=== PATIENT | female | born 1995 | race Caucasian/White ===

== ENCOUNTER 2016-10-12 09:20 | Emergency (ER) | payer OTHER ==
[2016-10-12 09:20] VITALS: BMI 42.0
[2016-10-12 09:25] VITALS: RESP 18; TEMP 98; O2SAT 99
[2016-10-12 10:07] VITALS: BP 120/72; PULSE 71
--- NOTE | 2016-10-12 10:40 | C.PDOC ---
History Of Present Illness 21 yr old female presents to the ER with complaints of diffuse body rash, which started few days ago. Patient reports has tried Benadryl with mild relief but the rash returns. Patient denies any known new exposure, fever, chest pain, SOB , mouth swelling, throat swelling, nausea, vomiting or headache. Time Seen by Provider: 10/12/16 09:44 Chief Complaint (Nursing): Abnormal Skin Integrity History Per: Patient History/Exam Limitations: no limitations Onset/Duration Of Symptoms: Days (Few days) Past Medical History Reviewed: Historical Data, Nursing Documentation, Vital Signs Vital Signs: Last Vital Signs Temp 98 F 10/12/16 09:23 Pulse 71 10/12/16 10:06 Resp 18 10/12/16 10:06 BP 120/72 10/12/16 10:06 Pulse Ox 99 10/12/16 10:42 - [facility] Procedures MANUAL ASSIST DELIV NEC (10/25/14) REPAIR OB LACERATION NEC (10/25/14) Family History: States: No Known Family Hx - Social History Hx Alcohol Use: No Hx Substance Use: No - Immunization History Hx Tetanus Toxoid Vaccination: Yes Hx Influenza Vaccination: Yes Hx Pneumococcal Vaccination: Yes Review Of Systems Except As Marked, All Systems Reviewed And Found Negative. Constitutional: Negative for: Fever ENT: Negative for: Mouth Swelling, Throat Swelling Cardiovascular: Negative for: Chest Pain Respiratory: Negative for: Shortness of Breath Gastrointestinal: Negative for: Nausea, Vomiting Skin: Positive for: Rash (Diffuse body rash ) Neurological: Negative for: Headache Physical Exam - Physical Exam Appears: Non-toxic, No Acute Distress Skin: Warm, Dry, Rash (Diffuse urtecaria. ) Head: Atraumatic, Normacephalic Oral Mucosa: Moist Throat: Normal, No Erythema, No Exudate, No Drooling Chest: Symmetrical, No Tenderness Cardiovascular: Rhythm Regular, No Murmur Respiratory: Normal Breath Sounds, No Rales, No Rhonchi, No Stridor, No Wheezing Extremity: Normal ROM, No Swelling Neurological/Psych: Oriented x3, Normal Speech, Normal Motor ED Course And Treatment O2 Sat by Pulse Oximetry: 99 (RA ) Pulse Ox Interpretation: Normal Medical Decision Making Medical Decision Making: PLAN: * Prednisone PO Disposition - Disposition Referrals: Lisa Knowles MD [Primary Care Provider] - Disposition: HOME/ ROUTINE Disposition Time: 09:50 Condition: GOOD Additional Instructions: Thank you for letting us take care of you today. Your provider was Dr. Menjivar. You were treated for an allergic reaction. The emergency medical care you received today was directed at your acute symptoms. If you were prescribed any medication, please fill it and take as directed. It may take several days for your symptoms to resolve. Return to the Emergency Department if your symptoms worsen, do not improve, or if you have any other problems. Please contact your doctor or call one of the physicians/clinics you have been referred to that are listed on the Patient Visit Information form that is included in your discharge packet. Bring any paperwork you were given at discharge with you along with any medications you are taking to your follow up visit. Our treatment cannot replace ongoing medical care by a primary care provider (PCP) outside of the emergency department. Thank you for allowing the [facility] team to be part of your care today. Try to do the items we discussed to pin-point what you are allergic to. Follow up with your doctor or the clinic in 3-4 days for re-evaluation and further management. Prescriptions: predniSONE [Prednisone] 40 mg PO DAILY #10 tab Instructions: General Allergic Reaction (ED) Forms: [employer] (Hungarian) - Clinical Impression Clinical Impression: Allergic reaction - Scribe Statement The provider has reviewed the documentation as recorded by the Vanessaibalessio Razo Provider Attestation: All medical record entries made by the Vanessaibalessio were at my direction and personally dictated by me. I have reviewed the chart and agree that the record accurately reflects my personal performance of the history, physical exam, medical decision making, and the department course for this patient. I have also personally directed, reviewed, and agree with the discharge instructions and disposition.
== END 2016-10-12 10:08 | disposition home or self-care (01) ==
LOC: SUPCPDRO 09:20 → C.ER 09:20
DX: T78.49XA Other allergy, initial encounter (principal)

== ENCOUNTER 2017-08-29 19:50 | Emergency (ER) | payer BC, OTHER ==
[2017-08-29 19:51] VITALS: BMI 42.0
[2017-08-29 19:58] VITALS: TEMP 99.7
[2017-08-29] MEDS ORDERED: Sodium Chloride 0.9% 1,000 ML IV ONE (20:18)
--- NOTE | 2017-08-29 20:18 | C.PDOC ---
History Of Present Illness 22 y/o female, , presents to ED for complaints of cramping abdominal pain and vaginal bleeding that began yesterday. Patient is 5 weeks . Denies fever, chills, nausea, vomiting, or any other physical complaints. Time Seen by Provider: 08/29/17 20:18 Chief Complaint (Nursing): Female Genitourinary History Per: Patient History/Exam Limitations: no limitations Onset/Duration Of Symptoms: Days (1) Current Symptoms Are (Timing): Still Present Severity: Moderate Pain Scale Rating Of: 4 Quality Of Discomfort: Cramping Associated Symptoms: denies: Fever, Chills, Nausea, Vomiting, Diarrhea Alleviating Factors: None Recent travel outside of the [place]: No Abnormal Vaginal Bleeding: Yes : 2 Para: 1 Past Medical History Reviewed: Historical Data, Nursing Documentation, Vital Signs Vital Signs: Last Vital Signs Temp 99.7 F H 08/29/17 19:54 Pulse 108 H 08/29/17 19:54 Resp 14 08/29/17 21:30 BP 120/70 08/29/17 21:30 Pulse Ox 98 08/29/17 21:30 - Medical History PMH: No Chronic Diseases - [facility] Procedures MANUAL ASSIST DELIV NEC (10/25/14) REPAIR OB LACERATION NEC (10/25/14) Family History: States: No Known Family Hx - Social History Hx Alcohol Use: No Hx Substance Use: No - Immunization History Hx Tetanus Toxoid Vaccination: Yes Hx Influenza Vaccination: Yes Hx Pneumococcal Vaccination: Yes Review Of Systems Constitutional: Negative for: Fever, Chills Gastrointestinal: Positive for: Abdominal Pain. Negative for: Nausea, Vomiting , Diarrhea Genitourinary: Positive for: Vaginal Bleeding. Negative for: Dysuria Skin: Negative for: Rash Neurological: Negative for: Weakness, Numbness Psych: Negative for: Anxiety Physical Exam - Physical Exam Appears: Non-toxic, No Acute Distress Skin: Warm, Dry Head: Normacephalic Eye(s): bilateral: Normal Inspection Oral Mucosa: Moist Neck: Supple Chest: Symmetrical Cardiovascular: Rhythm Regular Respiratory: No Rales, No Rhonchi, No Wheezing Gastrointestinal/Abdominal: Soft, Tenderness (Suprapubic ) Extremity: Normal ROM Extremity: Bilateral: Atraumatic, Normal Color And Temperature, Normal ROM Neurological/Psych: Oriented x3, Normal Speech Gait: Steady ED Course And Treatment - Laboratory Results Result Diagrams: 08/29/17 21:38 08/29/17 21:38 O2 Sat by Pulse Oximetry: 100 (RA) Pulse Ox Interpretation: Normal Progress Note: Administered IV fluids. Ordered blood work, urinalysis, and OB Transvaginal US. Reevaluation Time: 23:58 Reassessment Condition: Improved Disposition Counseled Patient/Family Regarding: Studies Performed, Diagnosis, Need For Followup - Disposition Referrals: Julia Barrett MD [Staff Provider] - Disposition: HOME/ ROUTINE Disposition Time: 20:18 Condition: FAIR Additional Instructions: Please return if symptoms recur. Do return in 7-10 days for a repeat BHCG level Instructions: Threatened Miscarriage (DC) Forms: [employer] [employer] (Barbadian) - Clinical Impression Clinical Impression: Threatened - Scribe Statement The provider has reviewed the documentation as recorded by the Scribe Carina Bullock All medical record entries made by the Scribe were at my direction and personally dictated by me. I have reviewed the chart and agree that the record accurately reflects my personal performance of the history, physical exam, medical decision making, and the department course for this patient. I have also personally directed, reviewed, and agree with the discharge instructions and disposition.
[2017-08-29 21:41] VITALS: RESP 14
[2017-08-29 21:44] LABS: BASO # 0.1 K/uL (0.0-0.2); EOS % 0.3 % (0.0-4.0); HEMOGLOBIN 11.6 g/dL (11.0-16.0); LYMPH # 3.1 K/uL (1.0-4.3); LYMPH % 51.7 % (20.0-40.0); MEAN CELL VOLUME 81.1 fL (81.0-99.0); MEAN CORPUSCULAR HEMOGLOBIN 26.4 pg (27.0-31.0); MEAN CORPUSCULAR HGB CONC 32.5 g/dL (33.0-37.0); MEAN PLATELET VOLUME 8.8 fL (7.2-11.7); MONO # 0.6 K/uL (0.0-0.8); MONO % 9.7 % (0.0-10.0); NEUT # 2.2 K/uL (1.8-7.0); NEUT % 37.3 % (50.0-75.0); RBC 4.39 Mil/uL (3.80-5.20); RED CELL DISTRIBUTION WIDTH 15.2 % (11.5-14.5)
[2017-08-29 21:48] LABS: SQUAMOUS EPITHIAL 4 /hpf (0-5); URINE BACTERIA RARE (<OCC); URINE BILIRUBIN NEGATIVE (NEGATIVE); URINE BLOOD NEGATIVE (NEGATIVE); URINE CLARITY Clear (Clear); URINE COLOR Yellow (YELLOW); URINE GLUCOSE (UA) NORMAL (Normal); URINE LEUKOCYTE ESTERASE 1+ Leu/uL (Negative); URINE PROTEIN NEGATIVE (NEGATIVE); URINE UROBILINOGEN NORMAL mg/dL (0.2-1.0)
[2017-08-29 21:52] LABS: INR 1.2; PROTHROMBIN TIME 13.5 SECONDS (9.7-12.2)
[2017-08-29 21:56] LABS: ALT/SGPT 27 U/L (9-52); AST/SGOT 16 U/L (14-36); BLOOD UREA NITROGEN 8 mg/dL (7-17); GFR AFRICAN-AMERICAN > 60; GFR NON-AFRICAN AMERICAN > 60
[2017-08-30 00:24] VITALS: BP 120/75; PULSE 80; O2SAT 99
--- NOTE | 2017-08-30 09:07 | US ---
PROCEDURE: OB Pelvic Ultrasound HISTORY: , vag bleed COMPARISON: None available. FINDINGS: UTERUS: Single intrauterine gestation. Gestational sac diameter measures 0.92 cm too small to estimate gestational age. Yolk sac is present. No pole is visualized on the current examination. Date of delivery (Ultrasound estimated) : [place] Carmen-gestational hemorrhage: None. Uterus measures 8.1 x 4.9 x 6.0 cm. No mass CERVIX: Long and closed. No cervical abnormality seen. RIGHT OVARY: Measures 2.5 x 2.2 x 2.7 cm. No mass. Normal flow. LEFT OVARY: Measures 3.2 x 2.1 x 2.1 cm. No mass. Normal flow. FREE FLUID: None. OTHER FINDINGS: None. IMPRESSION: Single intrauterine gestational sac too small to estimate gestational age. Yolk sac is visualized. pole is not identified on the current examination. Clinical and imaging follow-up is advised.
== END 2017-08-30 00:24 | disposition home or self-care (01) ==
LOC: C.ER 19:50
DX: O20.0 Threatened abortion (principal); Z3A.00 Weeks of gestation of pregnancy not specified

== ENCOUNTER 2017-11-26 18:09 | Emergency (ER) | payer BC ==
[2017-11-26 18:09] VITALS: BMI 42.0
[2017-11-26 18:16] VITALS: PULSE 71; RESP 20; TEMP 98.1; O2SAT 98
[2017-11-26 18:22] VITALS: BP 134/87
--- NOTE | 2017-11-26 18:37 | C.PDOC ---
History Of Present Illness 22 year old female, who is currently around 18 weeks , presents to the ED for evaluation of cough and congestion for 3 days. Patient states she was unsure about what medicine to take, since she is . Patient took Tylenol because she felt like she had a fever. She denies abdominal pain, vaginal bleeding/discharge. Time Seen by Provider: 11/26/17 18:28 Chief Complaint (Nursing): Cough, Cold, Congestion History Per: Patient History/Exam Limitations: no limitations Onset/Duration Of Symptoms: Days (3) Current Symptoms Are (Timing): Still Present Associated Symptoms: Cough Additional History Per: Patient Past Medical History Reviewed: Historical Data, Nursing Documentation, Vital Signs Vital Signs: Last Vital Signs Temp 98.1 F 11/26/17 18:13 Pulse 71 11/26/17 18:13 Resp 20 11/26/17 18:13 BP 134/87 11/26/17 18:21 Pulse Ox 98 11/26/17 18:13 - Medical History PMH: Hyperthyroidism Surgical History: No Surg Hx - [facility] Procedures MANUAL ASSIST DELIV NEC (10/25/14) REPAIR OB LACERATION NEC (10/25/14) Family History: States: Unknown Family Hx - Social History Hx Alcohol Use: No Hx Substance Use: No - Immunization History Hx Tetanus Toxoid Vaccination: Yes Hx Influenza Vaccination: Yes Hx Pneumococcal Vaccination: Yes Review Of Systems ENT: Positive for: Nose Congestion Respiratory: Positive for: Cough Gastrointestinal: Negative for: Abdominal Pain Genitourinary: Negative for: Vaginal Discharge, Vaginal Bleeding Physical Exam - Physical Exam Appears: Non-toxic, No Acute Distress Skin: Normal Color, Warm, Dry Head: Atraumatic, Normacephalic Eye(s): bilateral: Normal Inspection Ear(s): Bilateral: Normal Nose: Normal, No Discharge Oral Mucosa: Moist Throat: Normal, No Erythema, No Exudate Neck: Supple Chest: Symmetrical, No Deformity, No Tenderness Cardiovascular: Rhythm Regular, No Murmur Respiratory: Normal Breath Sounds, No Rales, No Rhonchi, No Wheezing, Other (active coughing noted ) Extremity: Normal ROM, Capillary Refill (less than 2 seconds ) Neurological/Psych: Oriented x3, Normal Speech, Normal Cognition ED Course And Treatment O2 Sat by Pulse Oximetry: 98 (on RA) Pulse Ox Interpretation: Normal Medical Decision Making Medical Decision Making: female with cough and congestion likely viral. Vital signs stable, no fever and no signs of respiratory distress. Lungs clear bilaterally. No abdomen pain. Recommend rest, fluids, Tylenol and saline. Patient is advised to follow up with her PMD within 1-2 days for further evaluation. Advised to return to the ED if symptoms persist or worsen. Disposition Counseled Patient/Family Regarding: Diagnosis, Need For Followup, Rx Given - Disposition Disposition: HOME/ ROUTINE Disposition Time: 18:36 Condition: GOOD Additional Instructions: Rx sent to [facility] Take Tylenol for any fever or bodyaches Use saline nebulizer for congestion and cough Can take Claritin in Rest and drink fluids Prescriptions: Sodium Chloride 0.9% [Sodium Chloride 0.9% Inh Soln] 3 ml IH Q2 #100 neb Sodium Chloride For Inhalation [Pulmosal (pH+) 4 ml] 4 ml IH Q2 #100 susanne Instructions: Upper Respiratory Infection (ED) Forms: [employer] (Telugu) - POA Present On Arrival: None - Clinical Impression Clinical Impression: Upper respiratory infection - PA / VIDEO TAPE TRANSFERRER / Resident Statement MD/DO has reviewed & agrees with the documentation as recorded. - Scribe Statement The provider has reviewed the documentation as recorded by the Scribe (Gely Dumont) All medical record entries made by the Scribe were at my direction and personally dictated by me. I have reviewed the chart and agree that the record accurately reflects my personal performance of the history, physical exam, medical decision making, and the department course for this patient. I have also personally directed, reviewed, and agree with the discharge instructions and disposition.
== END 2017-11-26 18:45 | disposition home or self-care (01) ==
LOC: C.ER 18:09
DX: O26.892 Other specified pregnancy related conditions, second trimester (principal); J06.9 Acute upper respiratory infection, unspecified; Z3A.18 18 weeks gestation of pregnancy

== ENCOUNTER 2018-02-27 11:25 | Observation (INO) | payer BC, OTHER ==
[2018-02-27] MEDS ORDERED: Lactated Ringer's 1,000 ML IV ONE ×2 (12:31→13:45)
[2018-02-27 13:01] LABS: BASO % 0.1 % (0.0-2.0); EOS % 0.1 % (0.0-4.0); HEMOGLOBIN 11.2 g/dL (11.0-16.0); LYMPH # 0.7 K/uL (1.0-4.3); LYMPH % 12.4 % (20.0-40.0); MEAN CELL VOLUME 85.1 fL (81.0-99.0); MEAN CORPUSCULAR HGB CONC 32.9 g/dL (33.0-37.0); MEAN PLATELET VOLUME 10.2 fL (7.2-11.7); MONO # 0.3 K/uL (0.0-0.8); NEUT # 4.7 K/uL (1.8-7.0); NEUT % 82.4 % (50.0-75.0); RBC 3.99 Mil/uL (3.80-5.20); RED CELL DISTRIBUTION WIDTH 14.1 % (11.5-14.5); WHITE BLOOD COUNT 5.7 K/uL (4.8-10.8)
[2018-02-27 13:07] LABS: SQUAMOUS EPITHIAL 4 /hpf (0-5); URINE BACTERIA RARE (<OCC); URINE BILIRUBIN NEGATIVE (NEGATIVE); URINE BLOOD NEGATIVE (NEGATIVE); URINE COLOR Amber (YELLOW); URINE GLUCOSE (UA) NORMAL (Normal); URINE LEUKOCYTE ESTERASE 3+ Leu/uL (Negative); URINE PROTEIN 1+ mg/dL (NEGATIVE)
[2018-02-27 13:08] LABS: URINE CLARITY SLHAZY (Clear)
[2018-02-27 13:17] LABS: ALBUMIN 3.8 g/dL (3.5-5.0); ALT/SGPT 14 U/L (9-52); AST/SGOT 25 U/L (14-36); BLOOD UREA NITROGEN 8 mg/dL (7-17); CALCIUM 8.8 mg/dl (8.6-10.4); GFR NON-AFRICAN AMERICAN > 60
[2018-02-27] MEDS ORDERED: cefTRIAXone IV 1 gm in Dextros 1 GM in Dextrose 5% In Water 50 ML IVPB ONE (14:00)
--- NOTE | 2018-02-27 16:15 | US ---
Date of service: 02/27/2018 PROCEDURE: Ultrasound of the Kidneys HISTORY: UTI r/o pyelo vs hydronephrosis; patient 31 weeks COMPARISON: None available. TECHNIQUE: Sonogram of the kidneys. FINDINGS: RIGHT KIDNEY: Measures: 10.3 x 4.8 x 4.9 cm. Mild fullness of the renal collecting system. No obstructing calculus. LEFT KIDNEY: Measures: 11.7 x 5.2 x 5.6 cm. No obstructing calculus or hydronephrosis. OTHER FINDINGS: Nondistended urinary bladder. IMPRESSION: Mild fullness of the right renal collecting system. Please note that pyelonephritis cannot be excluded on the basis of sonography alone. Correlate clinically.
[2018-02-27] MEDS: Lactated Ringer's 1,000 ML IV SCH (17:40)
--- NOTE | 2018-02-27 19:53 | OBHP ---
Datetime: 02/27/2018 15:52 IP Adm Impression: , intrauterine ; No Active Labor; Intact Membranes IP Admit Plan: Observation/Evaluation Admit Comment, IP Provider: SUBJECTIVE: CC: back and abdominal pain HPI: Patient is a 22 yo female, at 31.3 wks, presents with 1 week of sharp, constant, 9/1 0 back pain that is non radiating. She complains of associated intermittent abdominal pain at the mid line which comes and goes several times per hour, which is similar to her prior labor pains. It has b een difficult for her to walk due to the pain. She also admits to b/l LE weakness, nausea/vomiting x 1, intermittent stress incontinence with , but denies peripheral numbness/tingling or sensor y changes.She has been drinking 10 cups of water daily because of her vomiting and urination. She was last seen at the [facility] 2 weeks ago and was scheduled to be seen there again tomorrow ( 02/28/18). Patient reports consistent movment, denies vaginal bleeding, denies fluid leakage from vagina, and is concerned that she may be having contractions. Ob Hx: Prior without complications at [facility], at 41 weeks and 8lbs and 1 ounce. 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 The father is aware of the , but not informed of this visit Sexual hx: has had 2 sexual partners in the last year: one is the father of her 3yo daughter, and one is hte father of her current OBJECTIVE: normal physical exam findings as above Urinalysis: Urine protein: 1+ Leihocyte esterace: 3+ Urine WBC: 20 Specific gravity: 1.028 A/P Suspect abdominal pain/nausea/vomiting is 2/2 UTI vs pyelonephritis Rocephin given for UTI R/o renal calculi/hydronephrosis: renal US pending Will give LR bolus and maintenance at 125 cc/hr for fluid resuscitation PRN Zofran, Reglan for nausea/vomiting Monitor for improvement NST reactive No palpable contractions Case and plan reviewed and discussed with Dr. Dash Pickett, DO, PGY-1 Pelvic Type - PN: Adequate Extremities - PN: Normal Abdomen - PN: Normal Back - PN: Normal Breast - PN: Not Done Lungs - PN: Normal Heart - PN: Normal Thyroid - PN: Normal Neurologic - PN: Normal HEENT - PN: Normal General - PN: Normal Presentation-Admit: Vertex FHR - Baseline A Provider: 150 Membranes, Provider: Intact Gestation - Est Wks by US: 31.5 IP Hx Assessment: The Care Records were reviewed EGA AdmitDate IP: 31.5 Vital Signs Provider: Reviewed; Within Normal Limits IP Chief Complaint: Signs/symptoms UTI; Maternal discomfort; Other NICHD Variability Prov Fetus A: Moderate 6-25bpm NICHD Accel Fetus A IP Provider: 10X10 FHR Category Provider Fetus A: Category I NICHD Decel Fetus A IP Provider: None Genitourinary Exam: Normal DTRs - PN: Normal
[2018-02-27] MEDS ORDERED: Betamethasone Soluspan 30 mg/5mL Inj Susp IM ONE (21:27)
--- NOTE | 2018-02-27 23:04 | OBADHP ---
Datetime: 02/27/2018 15:52 Admit Comment, IP Provider: SUBJECTIVE: CC: back and abdominal pain HPI: Patient is a 22 yo female, at 31.3 wks, presents with 1 week of sharp, constant, 9/1 0 back pain that is non radiating. She complains of associated intermittent abdominal pain at the mid line which comes and goes several times per hour, which is similar to her prior labor pains. It has b een difficult for her to walk due to the pain. She also admits to b/l LE weakness, nausea/vomiting x 1, intermittent stress incontinence with , but denies peripheral numbness/tingling or sensor y changes.She has been drinking 10 cups of water daily because of her vomiting and urination. She was last seen at the [facility] 2 weeks ago and was scheduled to be seen there again tomorrow ( 02/28/18). Patient reports consistent movment, denies vaginal bleeding, denies fluid leakage from vagina, and is concerned that she may be having contractions. Ob Hx: Prior without complications at [facility], at 41 weeks and 8lbs and 1 ounce. 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 The father is aware of the , but not informed of this visit Sexual hx: has had 2 sexual partners in the last year: one is the father of her 3yo daughter, and one is hte father of her current OBJECTIVE: normal physical exam findings as above Urinalysis: Urine protein: 1+ Leihocyte esterace: 3+ Urine WBC: 20 Specific gravity: 1.028 A/P Suspect abdominal pain/nausea/vomiting is 2/2 UTI vs pyelonephritis Rocephin given for UTI R/o renal calculi/hydronephrosis: renal US pending Will give LR bolus and maintenance at 125 cc/hr for fluid resuscitation PRN Zofran, Reglan for nausea/vomiting Monitor for improvement NST reactive No palpable contractions Case and plan reviewed and discussed with Dr. Dash Pickett, DO, PGY-1 Pelvic Type - PN: Adequate Extremities - PN: Normal Abdomen - PN: Normal Back - PN: Normal Breast - PN: Not Done Lungs - PN: Normal Heart - PN: Normal Thyroid - PN: Normal Neurologic - PN: Normal HEENT - PN: Normal General - PN: Normal Presentation-Admit: Vertex FHR - Baseline A Provider: 150 Membranes, Provider: Intact Gestation - Est Wks by US: 31.5 IP Hx Assessment: The Care Records were reviewed Vital Signs Provider: Reviewed; Within Normal Limits IP Chief Complaint: Signs/symptoms UTI; Maternal discomfort; Other NICHD Variability Prov Fetus A: Moderate 6-25bpm NICHD Accel Fetus A IP Provider: 10X10 FHR Category Provider Fetus A: Category I NICHD Decel Fetus A IP Provider: None Genitourinary Exam: Normal DTRs - PN: Normal EGA AdmitDate IP: 31.5 IP Adm Impression: , intrauterine ; No Active Labor; Intact Membranes IP Admit Plan: Observation/Evaluation
[2018-02-28] MEDS ORDERED: cefTRIAXone IV 1 gm in Dextros 50 ML IVPB ONE (02:06)
[2018-02-28 07:26] LABS: BASO % 0.2 % (0.0-2.0); HEMOGLOBIN 10.1 g/dL (11.0-16.0); LYMPH # 0.9 K/uL (1.0-4.3); LYMPH % 28.5 % (20.0-40.0); MEAN CELL VOLUME 84.9 fL (81.0-99.0); MEAN CORPUSCULAR HEMOGLOBIN 27.8 pg (27.0-31.0); MEAN CORPUSCULAR HGB CONC 32.8 g/dL (33.0-37.0); MONO # 0.1 K/uL (0.0-0.8); NEUT # 2.1 K/uL (1.8-7.0); NEUT % 67.3 % (50.0-75.0); NRBC % 0.1 % (0.0-2.0); RBC 3.65 Mil/uL (3.80-5.20); RED CELL DISTRIBUTION WIDTH 13.9 % (11.5-14.5); WHITE BLOOD COUNT 3.1 K/uL (4.8-10.8)
[2018-02-28 07:48] LABS: ALB/GLOB RATIO 0.9 (1.0-2.1); ALBUMIN 3.4 g/dL (3.5-5.0); ALT/SGPT 14 U/L (9-52); AST/SGOT 20 U/L (14-36); BLOOD UREA NITROGEN 5 mg/dL (7-17); CALCIUM 8.8 mg/dl (8.6-10.4); GFR NON-AFRICAN AMERICAN > 60
[2018-02-28] MEDS ORDERED: Lactated Ringer's 1,000 ML IV ONE (08:00)
--- NOTE | 2018-02-28 08:09 | OBPN ---
Datetime: 02/28/2018 07:37 IP Progress Impression Other: pyelonephritis Contraction Comments Provider: none FHR - Baseline A Provider: 130 Gestation - Est Wks by US: 31.4 IP Progress Note Comment: 22yo at 31.6wks - admitted with suspected pyelonephritis afebrile; hypotensive Pyelonephritis - No leukocytosis - on Rocephin 1g q12h - urine culture pending Nausea/Vomiting- improved with Reglan/Zofran - clear liquids--> advance as tolerated - Hypotension likely related to dehydration - Currently on LR- IVF bolus x 1 now recheck vitals in 1 hour continue FHR/TOCO Macrobid course followed by supression therapy when discharged Continue to monitor closely Vital Signs Provider: Reviewed Vital Signs Provider Details: hypotensive NICHD Accel Fetus A IP Provider: 15X15 FHR Category Provider Fetus A: Category I NICHD Variability Prov Fetus A: Moderate 6-25bpm NICHD Decel Fetus A IP Provider: None Datetime: 02/27/2018 15:52 Membranes, Provider: Intact Presentation-Admit: Vertex
[2018-02-28] MEDS: Lactated Ringer's 1,000 ML IV SCH ×2 (08:45→16:45)
--- NOTE | 2018-02-28 17:14 | OBPN ---
Datetime: 02/28/2018 16:16 IP Progress Impression Other: pyelonephritis IP Progress Plan: Continue present management FHR - Baseline A Provider: 130 Gestation - Est Wks by US: 31.6 IP Progress Note Comment: at 31.6wks- Suspected pyelonephritis VSS; afebrile Pyelonephritis - continue IVF @125cc/hr - continue Rocephin - CVA tenderness improved - urine culture negative celestone #2 10pm (+) nausea no further vomiting - pepcid/reglan PRN Continue to monitor Vital Signs Provider: Reviewed NICHD Accel Fetus A IP Provider: 15X15 FHR Category Provider Fetus A: Category I NICHD Variability Prov Fetus A: Moderate 6-25bpm NICHD Decel Fetus A IP Provider: None
[2018-02-28] MEDS ORDERED: Betamethasone Soluspan 30 mg/5mL Inj Susp IM ONE (22:00)
--- NOTE | 2018-03-01 06:35 | OBPN ---
Datetime: 03/01/2018 06:29 IP Progress Impression Other: Pyelonephritis FHR - Baseline A Provider: 140 Gestation - Est Wks by US: 32.0 IP Progress Note Comment: at 32 weeks- Admitted with suspected pyelonephritis 1) VSS; afebrile >24hr 2) Pyelonephritis - urine culture negative - renal US suggestive of pyelo- will send home with macrobid suppression - s/p rocephin 3) nausea/vomiting improved- Pt able to tolerate food and liquids 4) s/p celestone x 2 for FLM 5) f/u with [facility] in 1 week Vital Signs Provider: Reviewed NICHD Accel Fetus A IP Provider: 15X15 NICHD Variability Prov Fetus A: Moderate 6-25bpm NICHD Decel Fetus A IP Provider: None
--- NOTE | 2018-03-01 06:39 | OBDCSUM ---
Datetime: 03/01/2018 06:32 Discharged to, Provider: Home Follow up at, Provider: clinic Disch Instr Activity: Normal activity Disch Instr Diet: Regular Discharge Instructions, Provider: Specific instructions as noted Discharge Time: 03/01/2018 06:32 Follow up in weeks, Provider: 1 Discharge Comment, Provider: Pt admitted on 02/27/18 with low grade temp/nausea/vomiting/right flank p ain. Renal US performed suggestive of pyelonephritis - Pt given rocephin IV and IV hydration. CVA ten derness resolved and patient afebrile for 24 hours. Celestone for lung maturity given. No s/s P TL. Pt to be discharged home with follow up in clinic in 1 week. Pt given prescription for macrobid s upression. Discharge Diagnosis Prov Other: suspected pyelonephritis
--- NOTE | 2018-03-01 09:12 | US ---
Indication: Comparison: 1st trimester ultrasound performed 08/29/17 Technique: Real-time ultrasound was performed through the pelvis. Findings: There is a single living fetus in cephalic presentation. Amniotic fluid volume is within normal limits, 17.8 cm. Posterior placenta. The placenta is not previa. There are no adnexal masses or cysts evident. The study was performed for the emergent evaluation and the whole anatomic survey of the fetus was not performed. Limited visualized anatomy appears grossly unremarkable. This should be performed on an outpatient elective basis as clinically warranted. Measurements and calculations: Fetus has a composite sonographic age of 32 weeks 4 days. This calculation is based on the biparietal diameter, head circumference, abdominal circumference, and femur length. Estimated heart rate 135 beats per min. Estimated weight 2015 g. Cervix length measures approximately 3.2 cm. Biophysical profile: movements 2/2 breathing 2/2 tone 2/2 Amniotic fluid 2/2 Total score impression: 10/02 Impression: Single living fetus with a composite sonographic age of 32 weeks 4 days. Estimated heart rate 135 beats per min. Biophysical profile of 8 out of 8.
[2018-03-01 15:00] VITALS: BP 94/61; PULSE 86; RESP 20; TEMP 98; O2SAT 99
== END 2018-03-01 09:40 | disposition home or self-care (01) ==
LOC: C.EROB 11:25 → C.4D 16:59 → INTOOBSV 16:59 → UNDOADMIN 17:01 → C.4D 17:01
PROVIDERS: ADMIT Obstetrics & Gynecology; ATTEND Obstetrics & Gynecology
DX: O23.03 Infections of kidney in pregnancy, third trimester (principal); E86.0 Dehydration; N12 Tubulo-interstitial nephritis, not specified as acute or chronic; N39.3 Stress incontinence (female) (male); O21.2 Late vomiting of pregnancy; O99.283 Endocrine, nutritional and metabolic diseases complicating pregnancy, third trimester; Z3A.32 32 weeks gestation of pregnancy; Z82.49 Family history of ischemic heart disease and other diseases of the circulatory system; Z83.49 Family history of other endocrine, nutritional and metabolic diseases
CPT/HCPCS: 76770; 76815; 76818; 80053; 81001; 82731; 83735; 84100; 85025; 87086; 96361; 96365; 96366; 96372; 96375; 96376; G0378; J0696; J0702; J2405; J2765; J7120

== ENCOUNTER 2018-04-21 11:12 | Inpatient (IN) | payer OTHER ==
[2018-04-21] MEDS ORDERED: Penicillin G 5 Million Unit Vial IVPB ONE ×2 (11:33→13:47)
[2018-04-21] MEDS ORDERED: Lactated Ringer's 1,000 ML IV ONE (11:33)
[2018-04-21] MEDS ORDERED: Lactated Ringer's 1,000 ML IV SCH ×2 (11:45→22:15)
[2018-04-21 13:35] LABS: BASO # 0.1 K/uL (0.0-0.2); BASO % 1.3 % (0.0-2.0); EOS % 0.4 % (0.0-4.0); HEMOGLOBIN 11.1 g/dL (11.0-16.0); LYMPH # 2.7 K/uL (1.0-4.3); LYMPH % 42.6 % (20.0-40.0); MEAN CELL VOLUME 83.6 fL (81.0-99.0); MEAN CORPUSCULAR HEMOGLOBIN 27.3 pg (27.0-31.0); MEAN CORPUSCULAR HGB CONC 32.7 g/dL (33.0-37.0); MEAN PLATELET VOLUME 11.1 fL (7.2-11.7); MONO # 0.6 K/uL (0.0-0.8); MONO % 9.2 % (0.0-10.0); NEUT # 2.9 K/uL (1.8-7.0); NEUT % 46.5 % (50.0-75.0); NRBC % 0.1 % (0.0-2.0); RBC 4.07 Mil/uL (3.80-5.20); RED CELL DISTRIBUTION WIDTH 14.4 % (11.5-14.5)
[2018-04-21] MEDS ORDERED: Oxytocin 30 UNIT 30 UNITS/500 ML BAG IV ONE (13:36)
[2018-04-21] MEDS: Oxytocin 30 UNIT 30 UNITS/500 ML BAG IV SCH (13:38)
[2018-04-21 13:40] LABS: WHITE BLOOD COUNT 6.2 K/uL (4.8-10.8)
[2018-04-21 13:52] LABS: SQUAMOUS EPITHIAL 26 /hpf (0-5); URINE BACTERIA RARE (<OCC); URINE BILIRUBIN NEGATIVE (NEGATIVE); URINE BLOOD NEGATIVE (NEGATIVE); URINE CLARITY Hazy (Clear); URINE COLOR Yellow (YELLOW); URINE GLUCOSE (UA) NORMAL (Normal); URINE LEUKOCYTE ESTERASE 3+ Leu/uL (Negative); URINE PROTEIN 1+ mg/dL (NEGATIVE); URINE UROBILINOGEN NORMAL mg/dL (0.2-1.0)
[2018-04-21 14:58] LABS: ALB/GLOB RATIO 0.9 (1.0-2.1); ALBUMIN 3.5 g/dL (3.5-5.0); ALT/SGPT 12 U/L (9-52); AST/SGOT 23 U/L (14-36); BLOOD UREA NITROGEN 10 mg/dL (7-17); CALCIUM 9.1 mg/dl (8.6-10.4); GFR NON-AFRICAN AMERICAN > 60
[2018-04-21 15:39] LABS: URIC ACID 5.1 mg/dL (2.2-7.5)
[2018-04-21 16:14] LABS: CREATININE, RANDOM URINE 249.7 mg/dL
--- NOTE | 2018-04-21 18:34 | OBADHP ---
Datetime: 04/21/2018 17:33 Membranes, Provider: Intact Contraction Comments Provider: q2-3 min Vital Signs Provider: Reviewed Dilatation, Provider: 2 Effacement, Provider: 50 Station, Provider: -3 Datetime: 04/21/2018 16:15 FHR - Baseline A Provider: 135 NICHD Variability Prov Fetus A: Moderate 6-25bpm FHR Category Provider Fetus A: Category I NICHD Decel Fetus A IP Provider: None Datetime: 04/21/2018 11:36 Admit Comment, IP Provider: Patient is a 23 year old at 39w2d MEETA 04/26/18 by LMP who presents to the unit for scheduled induction of labor. Patient reports having some mid abdominal cramping. Al so reports nausea with one episode vomiting this morning. Was able to tolerate breakfast. Endorses +F M, denies CTX, VB, LOF. Patient receieved care at [facility]. Issues: Hyperthyroidism on PTU 50mg PO daily and diagnosed during this HSV 2 positive diagnosed 06/2017 - was on Valtrex 1gm PO daily x 10 days at 36 weeks GBS positive OB Hx: 1. 2014 at term, 8lbs 1oz, female , no complications 2. Current [employer] Hx: LMP 07/20/17 [facility] 12 x regular x 5 days Denies history of abnormal pap smears, fibroids, ovarian cysts Hx of chlamydia and gonorrhea in 2015 - treated Allergies: NKDA Medications: PTU 50mg PO daily, PNV Medical history: Denies Surgical History: Denies Social History: Denies alcohol, tobacco, drug use Family History: Mother - hypothyroidism? Father - hypertension PE: see above A/P: 23 year old at 39w2d with history of hyperthyroidism presents for scheduled induction of labor -Admit to unit -CEFM and TOCO -NST Reactive/Category I tracing -Admission labs: CBC, CMP, TS, UA -Lactated ringers 125cc/hr -GBS positive - Pen G 5MMU x 1 dose, Pen G 2.5MMU q4H until delivery -Anesthesia on consult for pain control -Oxytocin for IOL -Anticipate vaginal delivery Plan discussed with Dr Dash Carrillo DO PGY-2 Pt seen and examined with Dr. Carrillo. all of her findings and POC were flly discussed with her and agreed on. Pelvic Type - PN: Adequate Extremities - PN: Normal Abdomen - PN: Normal Back - PN: Normal Breast - PN: Not Done Lungs - PN: Normal Heart - PN: Normal Thyroid - PN: Normal Neurologic - PN: Normal HEENT - PN: Normal General - PN: Normal Presentation-Admit: Vertex Comments, ACOG Physical Exam: VS reviewed Gen: NAD Abdomen: Soft, gravid Ext: No clubbing, cyanosis, edema SVE: /-3 Last US 04/02/18: EFW 6lbs 7oz, posterior placenta, cephalic presentation, HERNAN - normal Gestation - Est Wks by US: 39.2 IP Hx Assessment: The History has been Reviewed and is Current IP Chief Complaint: Scheduled induction of labor NICHD Accel Fetus A IP Provider: 15X15 Genitourinary Exam: Normal DTRs - PN: Normal EGA AdmitDate IP: 39.2 IP Adm Impression: Term, intrauterine ; No Active Labor; Intact Membranes IP Admit Plan: Admit to unit; Initiate labor protocol Datetime: 02/28/2018 07:37 Vital Signs Provider Details: hypotensive
--- NOTE | 2018-04-21 19:55 | OBPN ---
Datetime: 04/21/2018 17:33 IP Progress Impression: Normal progression of labor; Reassuring heart rate IP Procedures: Sterile Vag Exam IP Progress Plan: Continue present management; Induction Membranes, Provider: Intact Contraction Comments Provider: q2-3 min FHR - Baseline A Provider: 140 Vital Signs Provider: Reviewed NICHD Accel Fetus A IP Provider: 15X15 FHR Category Provider Fetus A: Category I NICHD Variability Prov Fetus A: Moderate 6-25bpm Dilatation, Provider: 2 Effacement, Provider: 50 Station, Provider: -3 NICHD Decel Fetus A IP Provider: None (Annotations: Data stored by CPN on behalf of user) Datetime: 04/21/2018 16:15 IP Informed Consent Obtain: Vaginal Delivery Gestation - Est Wks by US: 39.2 Presentation-Admit: Vertex IP Progress Note Comment: Patient seen and examined at bedside. Pain scale is 3/10. Offers no compla ints at this time. Vital signs reviewed and some diatolic pressures high 80's-90 No symptoms of PreE SVE: 50/-3 A/P: 23 year old at 39w2d for Induction of labor secondary to hyperthyroidism, on pitocin -Category I tracing -Elevated BPs noted, asymptomatic - LDH, uric acid and urine protein done and WNL/Prot/Cr ratio 0. 03 and pt continue asymptomatic -We will continue pitocin for induction -GBS positive on Penicillin G -Anticipate vaginal delivery Plan discussed with Dr Dash Carrillo DO PGY-2 Pt seen and examined with Dr. Carrillo and agree with her findings and POC
[2018-04-21] MEDS ORDERED: Fentanyl/Bupivacaine HCl 250 ML EPI ONE (21:18)
[2018-04-21] MEDS ORDERED: Magnesium Sulfate 4 gm/100 ml 4 GM/100 ML BAG IVPB ONE ×2 (22:04→22:20)
[2018-04-21] MEDS ORDERED: Magnesium Sulfate 20 gm 20,000 MG/500 ML BAG IV ONE (22:20)
[2018-04-22] MEDS ORDERED: Magnesium Sulfate 20 gm 20 GM/500 ML BAG IV SCH (00:15)
[2018-04-22] MEDS ORDERED: Bupivacaine HCl 0.5% PF (10 ml) Inj ONE (08:45)
[2018-04-22] MEDS ORDERED: Bupivacaine HCl 0.5% PF (30 ml) Inj ONE (08:55)
[2018-04-22] MEDS ORDERED: Magnesium Sulfate 20 gm 20,000 MG/500 ML BAG IV ONE (09:24)
[2018-04-22] MEDS ORDERED: Oxytocin 30 UNIT 30 UNITS/500 ML BAG IV ONE (09:24)
[2018-04-22] MEDS: Oxytocin 30 UNIT 30 UNITS/500 ML BAG IV SCH (10:00)
[2018-04-22] MEDS: Magnesium Sulfate 20 gm 20 GM/500 ML BAG IV SCH ×2 (10:00→16:30)
--- NOTE | 2018-04-22 10:11 | OBPN ---
Datetime: 04/22/2018 08:15 IP Progress Impression: Normal progression of labor; Reassuring heart rate IP Procedures: Sterile Vag Exam IP Progress Plan: Continue present management; Induction; Antibiotic therapy; Anticipate Vaginal Del josé miguel Membranes, Provider: Intact Contraction Comments Provider: q2-3 min FHR - Baseline A Provider: 130 IP Progress Note Comment: Patient seen and examined at beside. Reports feeling some vaginal pressure . Offers no other complaints at this time. Vital signs reviewed SVE: /-2 A/P: 23 year old at 39w3d presents for IOL 2/2 hyperthyroidism on pitocin 20 MMU and magne sium sulfate for elevated blood pressures -We will stop pitocin for one hour and restart it -Will call anesthesia for pain control -For possible AROM at next cervical exam -Recheck magnesium level at 11am -GBS positive on Pen G -Anticipate vaginal delivery Plan discussed with Dr Zeus Carrillo DO PGY-2 Attending Note: Patient seen, examined and evaluated by me with the Resident. I agree with the abo ve as documented. Vital Signs Provider: Reviewed; Within Normal Limits FHR Category Provider Fetus A: Category I NICHD Variability Prov Fetus A: Moderate 6-25bpm Dilatation, Provider: 6 Effacement, Provider: 70 Station, Provider: -2 NICHD Decel Fetus A IP Provider: None Datetime: 04/22/2018 06:42 IP Progress Plan Other: Magnesium sulfate Datetime: 04/21/2018 20:08 IP Progress Impression Other: Slow progression of labor NICHD Accel Fetus A IP Provider: 15X15
--- NOTE | 2018-04-22 13:02 | OBPN ---
Datetime: 04/22/2018 11:50 IP Progress Impression: Normal progression of labor; Reassuring heart rate IP Procedures: Artificial ROM; Intrauterine Pressure Catheter; Sterile Vag Exam IP Progress Plan: Continue present management; Induction; Antibiotic therapy; Anticipate Vaginal Del josé miguel Membranes, Provider: Ruptured Amniotic Fluid Color, Provider: Clear Contraction Comments Provider: q4-5 min FHR - Baseline A Provider: 125 IP Progress Note Comment: Patient seen and examined at bedside. Patient is doing well, offers no com plaints at this time. AROM performed. Fluid was scant and clear. IUPC placed. Vital signs stable SVE: 7-8/80/-2 A/P: 23 year old at 39w3d for IOL 2/2 hyperthyroidism, in active phase of labor on pitocin 8MMU and magnesium sulfate 1gm/hr -BPs have been stable -Last magnesium level was 5.1 -We will continue pitocin protocol -GBS positive, continue antibiotics -Anticipate vaginal delivery Plan discussed with Dr Zeus Carrillo DO PGY-2 Attending Note: patient seen, evaluated and examined by me with the Resident. I agree with the abo ve as documented. Vital Signs Provider: Reviewed; Within Normal Limits FHR Category Provider Fetus A: Category I NICHD Variability Prov Fetus A: Moderate 6-25bpm Dilatation, Provider: 7-8 Effacement, Provider: 80 Station, Provider: -2 NICHD Decel Fetus A IP Provider: None
[2018-04-22] MEDS ORDERED: Fentanyl/Bupivacaine HCl 250 ML EPI ONE (13:09)
[2018-04-22] MEDS ORDERED: Lidocaine 2% MPF (5 ml) Inj ONE (13:49)
[2018-04-22] MEDS ORDERED: Oxycodone/Acetaminophen 5/325 mg Tab ONE ×2 (17:53→22:29)
[2018-04-22] MEDS: Oxycodone/Acetaminophen 5/325 mg Tab PO PRN ×2 (17:54→22:23)
[2018-04-22] MEDS ORDERED: Gentamicin 80 mg/2mL Inj. IVPB ONE (19:20)
[2018-04-22] MEDS ORDERED: GENTAMICIN IVPB ONE (19:30)
[2018-04-22] MEDS ORDERED: SODIUM CHLORIDE 0.9% IVPB ONE (19:30)
[2018-04-22 19:58] LABS: BASO % 0.2 % (0.0-2.0); LYMPH # 2.1 K/uL (1.0-4.3); LYMPH % 21.5 % (20.0-40.0); MEAN CELL VOLUME 83.7 fL (81.0-99.0); MEAN CORPUSCULAR HEMOGLOBIN 26.3 pg (27.0-31.0); MEAN CORPUSCULAR HGB CONC 31.5 g/dL (33.0-37.0); MEAN PLATELET VOLUME 10.5 fL (7.2-11.7); MONO # 0.8 K/uL (0.0-0.8); MONO % 7.7 % (0.0-10.0); NEUT % 70.6 % (50.0-75.0); RBC 3.81 Mil/uL (3.80-5.20); RED CELL DISTRIBUTION WIDTH 14.8 % (11.5-14.5)
--- NOTE | 2018-04-22 20:01 | OBPPN ---
Datetime: 04/22/2018 19:48 PP Progress Note Prov: Notified by R.N. at approximately 1735 of heavy vaginal bleeding Patient receive idn in LDR#4, awake, alert, and responsive to all comands BP 136/82 Perneum noted for significant red blood Bimanual exploration performed with gloved hand soaked in Betadine solution. Uterus boggy. Decisio n made to stop magnesium sulphate infusion. Modereate amount of clots expressed. uterus became firmer and contracted, at the umbilicus. Cytotec 1,00 micrograms inserted per rectum. Rapid onfusion of rem aining 500 mL of LR with 20 units pitocin also performed. Uterus remained firm. EBL 500ML U.O. 1,100 mL 9from 1630 hour - 1755 hours B.P. at 1753 hours, 148/76 Assessment: Acute post hemorrhgae, secondary to uterine atony aggravated by magnesium sulph ate; latter stopped. If BPs increase, will consider starting anti-hypertensive. Patient is hemodynami lisa stable. Plan: 1) Gent/Clinda IVPB x 1 2) CBC, comp metabolic panel with LDH, U.A. at 1930 hours 3) Continue IV pitocin x 1 additional litre 4) Continue art until AM 5) Close observation Datetime: 02/28/2018 10:42 PP Pain Prov: Within normal limits PP Breasts Prov: Normal PP Abdomen/Uterus Prov: Normal PP Impression Prov: Normal progression PP Plan Prov: Continue present management IP PP Procedures: None
--- NOTE | 2018-04-22 20:03 | OBDS ---
MATERNAL INFORMATION Estimated Blood Loss (ml): 300 Provider Comments: This now P2 delivered a viable male via over second degree perineal l aceration. Infants head was delivered in a controlled manner and in the HIRAL position. Loose nuchal x 1 was reduced. Infant's shoulders were delivered atraumatically. Infant's mouth and nose were suction ed with bulb syringe. Infant was placed on mom's abdomen. Cord was clamped and cut after 60 second de lay. Cord blood was collected. An intact 3VC placenta was delivered spontaneously. EBL 300cc. Mom and baby are recovering in stable condition. Dr Schulz was present for entire delivery. Rica Carrillo DO PGY-2 Attending Note: present and participated in the delivery as described above. I agree with the [facility] ment[facility] of events. (Annotations: Data stored by [facility] on behalf of user) LABOR SUMMARY EDC: 04/26/2018 00:00 No. Babies in Womb: 1 Attempted: No Labor Anesthesia: Epidural LABOR INFORMATION Reason for Induction: Other Reason for Induction Other: Hyperthyroidism Onset of Labor: 04/21/2018 14:00 Oxytocin: Induction Group B Beta Strep: Positive MEMBRANES Membranes Rupture Method: Artificial Rupture of Membranes: 04/22/2018 11:44 Length of Rupture (hrs): 3.25 Amniotic Fluid Color: Clear Amniotic Fluid Amount: Small Amniotic Fluid Odor: Normal STAGES OF LABOR Stage 3 hrs: 0 Stage 3 min: 9 Total Time in Labor hrs: 25 Total Time in Labor min: 8 VAGINAL DELIVERY Episiotomy: None Laceration Extension: Second Degree Laceration Type: Perineal Laceration Repair Note: Second degree laceration repaired with 2-0 chromic suture with anatomic reap proximation. Hemostasis achieved. Sponge Count Correct: Yes Sharps Count Correct: Yes Count Comment: Correct BABY A INFORMATION Infant Delivery Date/Time: 04/22/2018 14:59 Method of Delivery: Vaginal Born in Route : No : N/A Forceps: N/A Vacuum Extraction: N/A Shoulder Dystocia : No SHOULDER DYSTOCIA BABY A Infant Delivery Date/Time: 04/22/2018 14:59 PRESENTATION/POSITION BABY A Presentation: Cephalic Cephalic Presentation: Vertex Vertex Position: Left Occipital Anterior Breech Presentation: N/A PLACENTA INFORMATION BABY A Placenta Delivery Time : 04/22/2018 15:08 Placenta Method of Delivery: Spontaneous Placenta Status: Delivered SCORES BABY A Heart Rate 1 min: >100 bpm Resp Effort 1 min: Good Cry Reflex Irritability 1 min: Cough or Sneeze or Pulls Away Muscle Tone 1 min: Active Motion Color 1 min: Body Ollie, Extremities Blue SCORE 1 MIN: 9 Heart Rate 5 min: >100 bpm Resp Effort 5 min: Good Cry Reflex Irritability 5 min: Cough or Sneeze or Pulls Away Muscle Tone 5 min: Active Motion Color 5 min: Body Ollie, Extremities Blue SCORE 5 MIN: 9 INFORMATION BABY A Gestational Age at Delivery: 39.2 Gestational Status: Term Outcome : Liveborn Condition : Stable Sex: Male IDENTIFICATION/MEDS BABY A ID Band Number: [id number] ID Band Location: Left Leg; Left Arm Sensor Applied: Yes Sensor Number: [id number] Sensor Location : Cord Clamp Vitamin K Given : Not Given Erythromycin Given: Not Given WEIGHT/LENGTH BABY A Birthweight (gms): 3360 Weight (lb): 7 Weight (oz): 6 Length Inches: 19.50 Infant Length cms: 49.5 CORD INFORMATION BABY A No. Cord Vessels: 3 Nuchal Cord : Around Neck x1, Loose Cord Blood Taken: Yes Infant Suction: Mouth; Nose ASSESSMENT BABY A Complications: None Physical Findings at Delivery: Within Normal Limits Respirations: Appears Normal Utility Teller/ALS Called : Yes Care By: Huy RUBALCAVA Transferred To: Remains with Mother
[2018-04-22 20:13] LABS: ALB/GLOB RATIO 0.9 (1.0-2.1); ALBUMIN 3.2 g/dL (3.5-5.0); ALT/SGPT 16 U/L (9-52); AST/SGOT 23 U/L (14-36); BLOOD UREA NITROGEN 5 mg/dL (7-17); CALCIUM 7.8 mg/dl (8.6-10.4); GFR NON-AFRICAN AMERICAN > 60; URIC ACID 4.7 mg/dL (2.2-7.5)
[2018-04-23] MEDS: Oxycodone/Acetaminophen 5/325 mg Tab PO PRN ×3 (04:16→14:31)
[2018-04-23 08:26] LABS: BASO % 0.3 % (0.0-2.0); EOS % 0.2 % (0.0-4.0); HEMOGLOBIN 8.6 g/dL (11.0-16.0); LYMPH % 44.3 % (20.0-40.0); MEAN CELL VOLUME 83.7 fL (81.0-99.0); MEAN CORPUSCULAR HEMOGLOBIN 26.7 pg (27.0-31.0); MEAN CORPUSCULAR HGB CONC 31.9 g/dL (33.0-37.0); MEAN PLATELET VOLUME 10.9 fL (7.2-11.7); MONO # 0.8 K/uL (0.0-0.8); MONO % 8.6 % (0.0-10.0); NEUT # 4.2 K/uL (1.8-7.0); NEUT % 46.6 % (50.0-75.0); RBC 3.21 Mil/uL (3.80-5.20); RED CELL DISTRIBUTION WIDTH 14.6 % (11.5-14.5); WHITE BLOOD COUNT 8.9 K/uL (4.8-10.8)
[2018-04-23] MEDS: Benzocaine/Menthol 20%-0.5% Topical Spray (60 ml) TOP PRN (09:06)
--- NOTE | 2018-04-23 10:14 | OBPPN ---
Datetime: 04/23/2018 10:10 PP Pain Prov: Within normal limits PP Nausea Prov: Denies PP Flatus Prov: Yes PP Comments Phys Exam Prov: fudus blow umblicus ext no edema,no clf ten PP Impression Prov: Normal progression PP Plan Prov: Continue present management PP Progress Note Prov: pt was examinbd at bed side, pain under control,no n/v tolrating dei,voiding, min lochia, fley in ppd#1 s/p cbc in am cont pp cre dc art Vital Signs Provider PP: Reviewed; Within Normal Limits
[2018-04-23 17:20] LABS: ALB/GLOB RATIO 0.9 (1.0-2.1); ALT/SGPT 13 U/L (9-52); AST/SGOT 20 U/L (14-36); BLOOD UREA NITROGEN 9 mg/dL (7-17); CALCIUM 8.3 mg/dl (8.6-10.4); GFR NON-AFRICAN AMERICAN > 60
[2018-04-24 00:21] VITALS: O2SAT 98
[2018-04-24] MEDS: Oxycodone/Acetaminophen 5/325 mg Tab PO PRN (03:33)
[2018-04-24] MEDS: Benzocaine/Menthol 20%-0.5% Topical Spray (60 ml) TOP PRN (04:00)
[2018-04-24 08:50] LABS: BASO % 0.3 % (0.0-2.0); EOS # 0.1 K/uL (0.0-0.7); EOS % 0.8 % (0.0-4.0); HEMOGLOBIN 8.8 g/dL (11.0-16.0); LYMPH # 3.9 K/uL (1.0-4.3); MEAN CELL VOLUME 84.2 fL (81.0-99.0); MEAN CORPUSCULAR HEMOGLOBIN 27.2 pg (27.0-31.0); MEAN CORPUSCULAR HGB CONC 32.3 g/dL (33.0-37.0); MEAN PLATELET VOLUME 10.7 fL (7.2-11.7); MONO # 0.6 K/uL (0.0-0.8); MONO % 8.7 % (0.0-10.0); NEUT # 2.7 K/uL (1.8-7.0); NEUT % 37.2 % (50.0-75.0); RBC 3.24 Mil/uL (3.80-5.20); RED CELL DISTRIBUTION WIDTH 14.8 % (11.5-14.5); WHITE BLOOD COUNT 7.3 K/uL (4.8-10.8)
--- NOTE | 2018-04-24 14:47 | OBDCSUM ---
Datetime: 04/24/2018 13:31 Discharged to, Provider: Home Follow up at, Provider: [facility] Disch Instr Activity: Normal activity; May Shower Disch Instr Diet: Regular Discharge Diet restrict Prov: none Discharge Instructions, Provider: Routine instructions given Discharge Diagnosis, Provider: Term Delivered Discharge Time: 04/24/2018 13:32 Follow up in weeks, Provider: 6 weeks Disch Referrals: None Contraception discussed, Prov: Yes Disch Activity Restrictions: No exercising; No lifting; No sexual activity; Nothing in vagina - Inte rcourse, tampons, douche Discharge Comment, Provider: F/U in 1 week for hyperthyroid status Discharge Diagnosis Prov Other: Hyperthyroidism Elevated BP readings Acute post hemorrhage Acute blood loss anemia Contraception counseling Contraception after Delivery: Control Pill/Patch
--- NOTE | 2018-04-24 14:48 | OBPPN ---
Datetime: 04/24/2018 09:45 PP Pain Prov: Within normal limits PP Nausea Prov: Denies PP Flatus Prov: Yes PP BM Prov: Yes PP Breasts Prov: Normal PP Heart Prov: Normal PP Lungs Prov: Normal PP Abdomen/Uterus Prov: Normal PP Lochia Prov: Normal PP Extremities Prov: Normal PP C/S Incision Prov: Not Applicable PP Progress Prov: Normal PP Impression Prov: Normal progression; difficulties; Induced Hyp ertension PP Plan Prov: Continue present management PP Progress Note Prov: Pt seen and examined this morning laying in bed. Pt reports minimal pain (4/1 0). Pt reports going through two pads over night and states vaginal bleeding has significantly decrea sed since delivery. Pt is ambulating. Pt wants to breastfeed for at least one month. Baby is having trouble latching on, she spoke with business transformation consultant yesterday and will continue trying to breast feed. Pt interested in restarting OCPs for contraception once she goes home. Denies fever, chills, nausea, vomitting, constipation, diarrhea. Shalonda Wilson OMS III Attending Note: patient seen, evaluated and examined with the Medical Student. I agree with the ab ove as documented Assessment: PPD#2, 23 y.o. P2, S/P . Acute post hemorrhage, responded to uterotonics. H/ H noted. Patient is asymptomatic and hemodynamically stable. Intrapartum course noted for elevated BP without stigmata of pre-eclampsia. h/o hyperthyroidism on PTU. Patient is interested in OCs for kaylee h control. Patient is clinically stable. Plan: 1) Discharge home 2) See full discharge discharge instsructions NB: Continue PTU 50 mg po QD; and F/U with primary care provider in 1 week. Ob/ post follo w uo in 6 weeks. IP PP Procedures: None Vital Signs Provider PP: Reviewed; Within Normal Limits Vital Signs Provider Details PP: Fundal height 1 finger breadth below umbilicus.
[2018-04-24 19:30] VITALS: BP 134/80; PULSE 83; RESP 18; TEMP 97.3
== END 2018-04-24 14:00 | disposition home or self-care (01) | DRG 372 ==
LOC: C.EROB 11:12 → C.4D 11:33 → C.4M 04-22 23:40
PROVIDERS: ADMIT Obstetrics & Gynecology; ATTEND Obstetrics & Gynecology
PROC: 3E033VJ Introduction of Other Hormone into Peripheral Vein, Percutaneous Approach (ICD-10-PCS; 2018-04-21)
PROC: 10E0XZZ Delivery of Products of Conception, External Approach (ICD-10-PCS; principal; 2018-04-22)
PROC: 0KQM0ZZ Repair Perineum Muscle, Open Approach (ICD-10-PCS; 2018-04-22)
PROC: 10907ZC Drainage of Amniotic Fluid, Therapeutic from Products of Conception, Via Natural or Artificial Opening (ICD-10-PCS; 2018-04-22)
DX: O99.284 Endocrine, nutritional and metabolic diseases complicating childbirth (principal); O72.1 Other immediate postpartum hemorrhage; E05.90 Thyrotoxicosis, unspecified without thyrotoxic crisis or storm; D62 Acute posthemorrhagic anemia; O69.81X0 Labor and delivery complicated by cord around neck, without compression, not applicable or unspecified; O70.1 Second degree perineal laceration during delivery; O99.02 Anemia complicating childbirth; O99.824 Streptococcus B carrier state complicating childbirth; Z3A.39 39 weeks gestation of pregnancy; Z37.0 Single live birth